=== PATIENT | female | born 1960 | race American Indian/Alaskan Native ===

== ENCOUNTER 2017-08-14 17:37 | Emergency (ER) | payer MEDICARE, OTHER ==
[2017-08-14 17:46] VITALS: BP 158/93
--- NOTE | 2017-08-14 19:01 | XRay Report ---
FINAL REPORT PROCEDURE: XR ANKLE 3+V LT TECHNIQUE: Left ankle radiographs, AP, lateral, and oblique views. CPT 03640 HISTORY: fall off three steps COMPARISON: No prior studies are available for comparison. FINDINGS: No fracture or dislocation visualized. Mild soft tissue swelling seen laterally. Ankle mortise and talar dome are intact. Excess re-ossicle suspected inferior to the medial malleolus. Moderate size calcaneal spur visualized at the plantar fascia insertion site. IMPRESSION: Mild soft tissue swelling. No fracture or dislocation visualized. Small calcaneal spur is visualized.
--- NOTE | 2017-08-14 19:08 | XRay Report ---
FINAL REPORT PROCEDURE: XR KNEE 3V LT TECHNIQUE: LEFT knee radiographs, AP, lateral and oblique views. CPT 24618 HISTORY: fall off three steps COMPARISON: No prior studies are available for comparison. FINDINGS: Moderate osteoarthritic changes seen in the medial compartment of the knee with joint space narrowing a marginal osteophyte formation. Mild osteoarthritic changes also seen in the patellar femoral joint space. Lateral compartment of the knee is well preserved. Osteophytic spurring projects from the insertion of the quadriceps tendon and the patellar tendon on the patella. No effusions are seen. No radiopaque foreign bodies are visualized. IMPRESSION: Moderate osteoarthritic changes medial compartment of the knee, mild changes patellar femoral joint space. No evidence of fracture, dislocation, joint effusion or foreign body..
--- NOTE | 2017-08-14 19:42 | Emergency Department Report ---
ED Fall HPI - General Chief Complaint: Fall Stated Complaint: FALL/LEG PAIN Time Seen by Provider: 08/14/17 18:04 Source: EMS Mode of arrival: Wheelchair - History of Present Illness Initial Comments: This is a 57-year-old female nontoxic, well nourished in appearance, no acute signs of distress presents to the ED with c/o of neck, back, knee and ankle pain s/p fall. Patient stated that she was walking down the stairs at home outside and slipped and landed on her lower back, neck and head area. Patient is complaining of ankle and knee pain as he twisted and fell on it. Patient denies any radiation of pain. Patient denies loss of consciousness but states she started to see "stars". Patient denies any numbness, tingling, fever, chills, nausea, vomiting, abdominal pain. Patient denies any visual changes. She states allergies to acetaminophen. Past medical history includes asthma, diabetes, GERD and hypertension. MD Complaint: fall -: This afternoon Fall From: standing Fall Witnessed: no Loss of Consciousness: none Prolonged Down Time?: no Symptoms Prior to Fall: none Severity: mild Severity scale (0 -10): 8 Quality: aching Context: tripped/slipped Associated Symptoms: denies, headache, neck pain. denies: numbness, weakness, chest paint, shortness of breath, abdominal pain, hematuria, unable to walk, lightheaded, vertigo, confusion - Related Data Home Medications Medication Instructions Recorded Confirmed Last Taken Gabapentin 1 tab PO BID 04/30/13 04/30/13 04/27/13 Losartan/Hydrochlorothiazide 1 tab PO DAILY 04/30/13 04/30/13 04/30/13 [Hyzaar 100-12.5 TAB] Omeprazole [PriLOSEC] 40 mg PO DAILY 04/30/13 04/30/13 04/27/13 Oxycodone HCl/Acetaminophen 1 tab PO PRN 04/30/13 04/30/13 04/29/13 [Percocet 10/325 mg] Previous Rx's Medication Instructions Recorded Last Taken Type Cyclobenzaprine [Flexeril] 10 mg PO QHS PRN #10 tablet 08/14/17 Unknown Rx Ibuprofen [Motrin] 600 mg PO Q8H PRN #30 tablet 08/14/17 Unknown Rx Allergies Allergy/AdvReac Type Severity Reaction Status Date / Time acetaminophen [From Vicodin] AdvReac VOMITING Verified 04/30/13 14:14 AND HEADACHE hydrocodone bitartrate AdvReac VOMITING Verified 04/30/13 14:14 [From Vicodin] AND HEADACHE ED Review of Systems ROS: Stated complaint: FALL/LEG PAIN Other details as noted in HPI Constitutional: denies: chills, fever Eyes: denies: eye pain, eye discharge, vision change ENT: denies: ear pain, throat pain Respiratory: denies: cough, shortness of breath, wheezing Cardiovascular: denies: chest pain, palpitations Endocrine: no symptoms reported Gastrointestinal: denies: abdominal pain, nausea, diarrhea Genitourinary: denies: urgency, dysuria, discharge Musculoskeletal: back pain, arthralgia. denies: joint swelling Skin: denies: rash, lesions Neurological: headache. denies: weakness, paresthesias Psychiatric: denies: anxiety, depression Hematological/Lymphatic: denies: easy bleeding, easy bruising ED Past Medical Hx - Past Medical History Previous Medical History?: Yes Hx Hypertension: Yes Hx Diabetes: Yes Hx GERD: Yes Hx Asthma: Yes Additional medical history: depression, anxiety, and chronic back pain - Surgical History Past Surgical History?: Yes Hx Breast Surgery: Yes (BREAST REDUCTION) - Social History Smoking Status: Never Smoker Substance Use Type: None - Medications Home Medications: Home Medications Medication Instructions Recorded Confirmed Last Taken Type Gabapentin 1 tab PO BID 04/30/13 04/30/13 04/27/13 History Losartan/Hydrochlorothiazide 1 tab PO DAILY 04/30/13 04/30/13 04/30/13 History [Hyzaar 100-12.5 TAB] Omeprazole [PriLOSEC] 40 mg PO DAILY 04/30/13 04/30/13 04/27/13 History Oxycodone HCl/Acetaminophen 1 tab PO PRN 04/30/13 04/30/13 04/29/13 History [Percocet 10/325 mg] Cyclobenzaprine [Flexeril] 10 mg PO QHS PRN #10 tablet 08/14/17 Unknown Rx Ibuprofen [Motrin] 600 mg PO Q8H PRN #30 tablet 08/14/17 Unknown Rx ED Physical Exam - General Limitations: No Limitations General appearance: alert, in no apparent distress - Head Head exam: Present: atraumatic, normocephalic - Eye Eye exam: Present: normal appearance Pupils: Present: normal accommodation - ENT ENT exam: Present: normal exam, mucous membranes moist - Neck Neck exam: Present: normal inspection, full ROM. Absent: tenderness, meningismus, lymphadenopathy - Respiratory Respiratory exam: Present: normal lung sounds bilaterally. Absent: respiratory distress, wheezes, rales, rhonchi, stridor, chest wall tenderness, accessory muscle use, decreased breath sounds, prolonged expiratory - Cardiovascular Cardiovascular Exam: Present: regular rate, normal rhythm, normal heart sounds. Absent: irregular rhythm, systolic murmur, diastolic murmur, rubs, gallop - GI/Abdominal GI/Abdominal exam: Present: soft, normal bowel sounds. Absent: distended, tenderness, guarding, rebound, rigid, diminished bowel sounds - Rectal Rectal exam: Present: deferred - Extremities Exam Extremities exam: Present: normal inspection, full ROM, tenderness, normal capillary refill. Absent: joint swelling - Expanded Lower Extremity Exam Left Hip exam: Present: normal inspection, full ROM, external rotation, internal rotation, pelvic stability. Absent: tenderness, swelling, abrasion, laceration , ecchymosis, deformity, crepidus, dislocation, erythema, shortening Upper Leg exam: Present: normal inspection, full ROM. Absent: tenderness, swelling, abrasion, laceration, ecchymosis, deformity, crepidus, dislocation, erythema Knee exam: Present: normal inspection, full ROM, tenderness, abrasion, full knee extension. Absent: swelling, laceration, ecchymosis, deformity, crepidus, dislocation, erythema, effusion, pain w/ pronation/supination, posterior draw sign, pain/laxity with valgus, pain/laxity with varus Lower Leg exam: Present: normal inspection, full ROM. Absent: tenderness, swelling, abrasion Ankle exam: Present: normal inspection, full ROM, tenderness, swelling. Absent : abrasion, laceration, ecchymosis, deformity, crepidus, dislocation, erythema, anterior draw sign Foot/Toe exam: Present: normal inspection, full ROM. Absent: tenderness, swelling Neuro vascular tendon exam: Present: no vascular compromise. Absent: pulse deficit, abnormal cap refill, motor deficit, sensory deficit, tendon deficit, extremity cold to touch, pallor, abnormal 2-point discrimination, decreased fine /light touch, foot drop, peroneal nerve deficit, significant pain with passive ROM of distal joint Gait: Positive: observed and limited by pain - Back Exam Back exam: Present: normal inspection, full ROM, paraspinal tenderness ( cervical and lumbar). Absent: tenderness, CVA tenderness (R), CVA tenderness (L ), muscle spasm, vertebral tenderness, rash noted - Expanded Back Exam Expanded Back exam: Absent: saddle anesthesia Back exam: Negative Straight Leg Raising: Left, Right - Neurological Exam Neurological exam: Present: alert, oriented X3, CN II-XII intact - Expanded Neurological Exam Expanded Patient oriented to: Present: person, place, time Cranial nerves: EOM's Intact: Normal, Gag Reflex: Normal, Facial Sensation: Normal Cerebellar function: Finger to Nose: Normal Upper motor neuron: Pronator Drift: Normal, Sensory Extinction: Normal Sensory exam: Upper Extremity Light Touch: Normal, Upper Extremity Pin Prick: Normal, Upper Extremity Temperature: Normal, UE 2 Point Discrimination: Normal, Lower Extremity Light Touch: Normal, Lower Extremity Pin Prick: Normal, Lower Extremity Temperature: Normal, LE 2 Point Discrimination: Normal Motor strength exam: RUE: 5, LUE: 5, RLE: 5, LLE: 5 Best Eye Response ([place]): (4) open spontaneously Best Motor Response ([place]): (6) obeys commands Best Verbal Response ([place]): (5) oriented [place] Total: 15 - Psychiatric Psychiatric exam: Present: normal affect, normal mood - Skin Skin exam: Present: warm, dry, intact, normal color. Absent: rash ED Course Vital Signs 08/14/17 17:39 Temperature 98.5 F Pulse Rate 82 Respiratory 15 Rate Blood Pressure 158/93 O2 Sat by Pulse 100 Oximetry - Reevaluation(s) Reevaluation #1: 08/14/17 20:05 Patient is speaking in full sentences with no signs of distress noted. ED Medical Decision Making - Medical Decision Making This is a 57-year-old female that presents with left knee strain, left ankle sprain, and ground-level fall. Patient is stable and was examined by me. I referred patient to an orthopedic doctor for further evaluation for possible MRI. CT of head/brain, cervical and lumbar spine and x-rays of the left ankle and knee has been obtained and dictated by the radiologist. Patient is notified of the x-ray and CT report report with noted by the patient. Patient does have normal gait with no tenderness and no joint swelling. No ecchymosis. no joint redness or swelling. Not warm to touch. No signs of cellulites present. Patient received a knee immobilize and a walker. Patient also received Tylenol with Codeine for pain and patient stated that her friend neighbor will drive her home after discharge due to possible drowsiness.. Patient was instructed to RICE therapy. Patient received Motrin for pain. Patient is discharged with Motrin. At time of discharge, the patient does not seem toxic or ill in appearance. No acute signs of distress noted. Patient agrees to discharge treatment plan of care. No further questions noted by the patient. Critical care attestation.: If time is entered above; I have spent that time in minutes in the direct care of this critically ill patient, excluding procedure time. ED Disposition Clinical Impression: Fall Qualifiers: Encounter type: initial encounter Qualified Code(s): W19.XXXA - Unspecified fall, initial encounter Strain of left knee Qualifiers: Encounter type: initial encounter Qualified Code(s): S86.912A - Strain of unspecified muscle(s) and tendon(s) at lower leg level, left leg, initial encounter Left ankle sprain Qualifiers: Encounter type: initial encounter Involved ligament of ankle: unspecified ligament Qualified Code(s): S93.402A - Sprain of unspecified ligament of left ankle, initial encounter Headache Qualifiers: Headache type: unspecified Headache chronicity pattern: acute headache Intractability: not intractable Qualified Code(s): R51 - Headache Cervical muscle strain Qualifiers: Encounter type: initial encounter Qualified Code(s): S16.1XXA - Strain of muscle, fascia and tendon at neck level, initial encounter Low back strain Qualifiers: Encounter type: initial encounter Qualified Code(s): S39.012A - Strain of muscle, fascia and tendon of lower back, initial encounter Disposition: TO HOME OR SELFCARE Is pt being admited?: No Does the pt Need Aspirin: No Condition: Stable Instructions: Fall Prevention for Older Adults (ED), Cyclobenzaprine (By mouth) , Ibuprofen (By mouth), RICE Therapy (ED), Knee Immobilizer (ED) Additional Instructions: Follow-up with a orthopedic doctor in 3-5 days or if symptoms worsen and continue return to emergency room as soon as possible. Prescriptions: Cyclobenzaprine [Flexeril] 10 mg PO QHS PRN #10 tablet PRN Reason: Muscle Spasm Ibuprofen [Motrin] 600 mg PO Q8H PRN #30 tablet PRN Reason: Pain Referrals: PRIMARY CARE, [Primary Care Provider] - 3-5 Days ZAC DE LA ROSA MD [Staff Physician] - 3-5 Days SRAVAN VELASQUEZ MD [Staff Physician] - 3-5 Days [facility] [Outside] - 3-5 Days [facility] [Outside] - 3-5 Days Forms: Work/School Release Form(ED)
--- NOTE | 2017-08-14 19:59 | Cat Scan Report ---
FINAL REPORT PROCEDURE: CT HEAD/BRAIN WO CON TECHNIQUE: Computerized tomography of the head was performed without contrast material. HISTORY: headache/neck pain/low back pain fall COMPARISON: No prior studies are available for comparison. FINDINGS: Brain: Brain density appears normal. No evidence of intracranial hemorrhage. No parenchymal hemorrhage, mass lesions or mass effect are seen. No abnormal extraxial fluid collects or masses are seen. Ventricles: Ventricles are normal size and are midline. Bone Windows: No evidence of skull fracture. Small scalp hematoma visualized overlying the right side of the forehead. Paranasal sinuses: Visualized portions appear clear. Mastoid air cells: Visualized portions appear clear. IMPRESSION: Small scalp hematoma otherwise negative exam. No evidence of intracranial hemorrhage or skull fracture.
[2017-08-14] MEDS ORDERED: TYLENOL #3 PO ONE (20:03)
[2017-08-14] MEDS ORDERED: MOTRIN PO ONE (20:03)
--- NOTE | 2017-08-14 20:09 | Cat Scan Report ---
FINAL REPORT PROCEDURE: CT CERVICAL SPINE WO CON TECHNIQUE: Computerized tomography of the cervical spine was performed from the skull base to T1 without contrast material. HISTORY: headache/neck pain/low back pain fall COMPARISON: No prior studies are available for comparison. FINDINGS: No fracture or subluxation is visualized. Prevertebral soft tissues appear normal. Posterior elements are intact. Moderate degenerative disc disease is visualized C3-4, C4-5, C5-6 and C6-7 with anterior posterior osteophytic spurring. The posterior osteophytic spurs obscure portions of the anterior epidural space. At the C4-5 level there appears to be additional moderate size diffuse disc bulge. The combination of the posterior osteophytic spur and disc bulge appear to be obscuring the anterior epidural space. The appearance is suspicious for mild flattening or compression of the anterior surface of the cord. There may also be a disc bulge at the C5-C6 level although this is suboptimally visualized. In addition there is a posterior osteophytic spur to the right of midline T1-T2 level obscuring the anterior epidural space and possibly resting on the anterior surface of the cord. Moderate facet arthritis visualized on the right at C7-T1 level. IMPRESSION: No fracture or subluxation is visualized. Moderate diffuse degenerative disc disease present as described. This is greatest at the C4-5 level were there appears to be posterior osteophytic ridging and a diffuse disc bulge which may be mildly flattening the anterior surface of the cord. Possible additional diffuse disc bulge C5-C6 level. There is moderate facet arthritis as described..
--- NOTE | 2017-08-14 20:22 | Cat Scan Report ---
FINAL REPORT PROCEDURE: CT LUMBAR SPINE WO CON TECHNIQUE: Computerized axial tomography of the lumbar spine was performed from T12 to the sacrum without contrast material. HISTORY: headache/neck pain/low back pain fall COMPARISON: No prior studies are available for comparison. FINDINGS: No fracture or subluxation is visualized. There is moderate to advanced diffuse degenerative disc disease L1 to through the L5-S1 level with moderate to marked disc space narrowing, vacuum disc phenomena. Posterior osteophytic spurs are also present as well as anterior osteophytic spurring. Posterior elements appear intact. Mild facet arthritis is present. Posterior osteophytic spurs overlying a disc bulge at the L1-L2 level larger to the left than the right flattening a portion of the thecal sac anteriorly. The spinal canal is narrowed although probably still adequate. The neural foramina on the left appears narrowed. Posterior osteophytic spurs overlying a disc bulge are visualized at the L2-3 level flattening the anterior aspect of the thecal sac. No focal disc herniation or spinal stenosis is visualized. The neural foramina on the left appears stenotic. I cannot exclude compression of the exiting left L2 nerve root. The neural foramina on the right is also narrowed although less so than the left. Posterior osteophytic spurs overlying a disc bulge are visualized at the L3-4 level. There flattening of the thecal sac. The spinal canal is narrowed secondary to the disc osteophyte complex as well as ligamentum flavum laxity. There is borderline to mild spinal stenosis. Mild facet arthritis is visualized. Posterior osteophytic spurring overlying a disc bulge is visualized at the L4-5 level. There appears to be a lateral disc herniation to the right at this level. I suspect there is displacement of the right L5 nerve root. The disc appears to extend into the neural foramina. I cannot exclude compression of the exiting L4 nerve root. The spinal canal is further narrowed by ligamentum flavum laxity although probably still adequate. Posterior osteophytic spurring is seen overlying a disc bulge at the L5-S1 level. Spinal canal is narrowed although probably still adequate. No focal disc herniation is visualized. IMPRESSION: No fracture or subluxation is seen. There is moderate diffuse degenerative disc disease as described. Borderline mild spinal stenosis suspected at the L3-L4 level. Posterior osteophytic spurring and asymmetric disc bulge or herniation to the right at L4-5 appears to be present. I suspect this is displacing the right L5 nerve root. Disc extension into the neural foramina on the right may be compressing the right L4 nerve root as well. Additional neural foraminal narrowing and stenosis as described above.
== END 2017-08-14 21:13 | disposition home or self-care (01) ==
LOC: ED 17:37
DX: S93.402A Sprain of unspecified ligament of left ankle, initial encounter (principal); S16.1XXA Strain of muscle, fascia and tendon at neck level, initial encounter; S39.012A Strain of muscle, fascia and tendon of lower back, initial encounter; S86.912A Strain of unspecified muscle(s) and tendon(s) at lower leg level, left leg, initial encounter; R51 Headache; I10 Essential (primary) hypertension; E11.9 Type 2 diabetes mellitus without complications; K21.9 Gastro-esophageal reflux disease without esophagitis; J45.909 Unspecified asthma, uncomplicated; F32.2 Major depressive disorder, single episode, severe without psychotic features; G89.29 Other chronic pain; Z88.6 Allergy status to analgesic agent; W10.8XXA Fall (on) (from) other stairs and steps, initial encounter; Y93.89 Activity, other specified; Y92.89 Other specified places as the place of occurrence of the external cause; Y99.8 Other external cause status
CPT/HCPCS: 70450; 72125; 72131